=== PATIENT | female | born 1990 | race Caucasian/White ===

== ENCOUNTER 2017-02-01 20:05 | Emergency (ER) | payer SELFPAY ==
[~2017-02-01] VITALS: Ht 157.5 cm; Wt 52.0 kg
[2017-02-01 20:09] VITALS: Ht 157.5 cm; Wt 52.0 kg
[2017-02-01] MEDS ORDERED: POLY17PO6 PO (21:39)
[2017-02-01] MEDS ORDERED: PRPH30O PR (21:39)
[2017-02-01] MEDS ORDERED: LIDO5OI35 TP (21:39)
[2017-02-01] MEDS ORDERED: HYDR-906 PO (21:39)
[2017-02-01] MEDS ORDERED: NAPR-688 PO (21:39)
--- NOTE | 2017-02-01 21:42 | ERD ---
ER Documentation Chief Complaint Date/Time DATE: 02/01/17 TIME: 21:40 Chief Complaint Hemorrhoids pain since HPI This 26-year-old female presents to the ER for external hemorrhoids that are painful that she first noticed . She has had hemorrhoids before during her . She denies any fevers or chills. Pain is increased when she sits down or touches them. No bleeding. She is still having bowel movements but is less than normal because she is afraid of the pain. ROS All systems reviewed and are negative except as per history of present illness. Medications Home Meds Active Scripts Naproxen* (Naproxen*) 500 Mg Tablet, 500 MG PO BID Y for PAIN, #20 TAB Prov:AFRICA CARBAJAL 02/01/17 Phenyleph/Shark Oil/Mo/Petrol* (FORMULATION R OINT*) 1 Applic Oint, 1 APPLIC OK BID, #1 TUB Prov:RAVENAFR[place] DO 02/01/17 Hydrocodone/Acetaminophen ([place] 5-325 Tablet) 1 Each Tablet, 1 EACH PO Q6, #20 TAB Prov:AFRICA CARBAJAL DO 02/01/17 Polyethylene Glycol* (Miralax*) 17 Gm Powd.pack, 17 GM PO DAILY, #20 PACKET Prov:AFRICA CARBAJAL DO 02/01/17 Lidocaine (LIDOCAINE) 35.44 Gm Oint...g., 35.44 GM TP BID, #1 TUB Prov:AFRICA CARBAJAL DO 02/01/17 Allergies Allergies: Coded Allergies: No Known Allergy (Unverified , 03/11/14) PMhx/Soc History of Surgery: No Anesthesia Reaction: No Hx Neurological Disorder: No Hx Respiratory Disorders: No Hx Cardiac Disorders: No Hx Psychiatric Problems: No Hx Miscellaneous Medical Probl: Yes (HEMORRHOIDS.) Hx Alcohol Use: No Hx Substance Use: No Hx Tobacco Use: No Smoking Status: Never smoker Physical Exam Vitals Vital Signs Date Time Temp Pulse Resp B/P Pulse Ox O2 Delivery O2 Flow Rate FiO2 02/01/17 20:09 98.9 83 20 144/70 100 Physical Exam Const: [] No distress Abd: Soft, non tender, non distended. Normal bowel sounds, rectal exam: Very small pink external hemorrhoid on the left portion of the anus. No evidence of thrombosis or bleeding. Not particularly inflamed. Skin: No petechiae or rashes Ext: No cyanosis, or edema Procedures/MDM External hemorrhoid with no signs of thrombosis or infection. Patient prefers to have medications prescribed rather than administered in the ER. I am going to discharge her with lidocaine jelly, Preparation H, MiraLAX, naproxen and [place]. Primary care follow-up and return precautions per Departure Diagnosis: Primary Impression: External hemorrhoids Condition: Stable Patient Instructions: Understanding Hemorrhoids Referrals: [facility] YOU HAVE RECEIVED A MEDICAL SCREENING EXAM AND THE RESULTS INDICATE THAT YOU DO NOT HAVE A CONDITION THAT REQUIRES URGENT TREATMENT IN THE EMERGENCY DEPARTMENT. FURTHER EVALUATION AND TREATMENT OF YOUR CONDITION CAN WAIT UNTIL YOU ARE SEEN IN YOUR DOCTORS OFFICE WITHIN THE NEXT 1-2 DAYS. IT IS YOUR RESPONSIBILITY TO MAKE AN APPOINTMENT FOR FOLOW-UP CARE. IF YOU HAVE A PRIMARY DOCTOR --you should call your primary doctor and schedule an appointment IF YOU DO NOT HAVE A PRIMARY DOCTOR YOU CAN CALL OUR PHYSICIAN REFERRAL HOTLINE AT IF YOU CAN NOT AFFORD TO SEE A PHYSICIAN YOU CAN CHOSE FROM THE FOLLOWING [facility] [address] [facility]. [facility] [address] [facility] [facility] [address] [facility]. [facility] [address] [facility]. [facility] [address] [facility]. [facility]. [address] Additional Instructions: Call your primary care doctor TOMORROW for an appointment during the next 2-3 days.See the doctor sooner or return here if your condition worsens before your appointment time. AFRICA CARBAJAL DO February 01, 2017 21:42
== END 2017-02-01 21:58 | disposition home or self-care (01) ==
LOC: FTE 20:05
DX: K64.4 Residual hemorrhoidal skin tags (principal)
CPT/HCPCS: 99283